=== PATIENT | male | born 1930 ===

== ENCOUNTER 2020-07-10 17:54 | Emergency (ER) | payer MEDICAID ==
[~2020-07-10] VITALS: Ht 165.1 cm; Wt 68.0 kg
[2020-07-10] MEDS ORDERED: SODIUM CHLORIDE FLUSH 10ML SYR IVF ONE (18:30)
[2020-07-10] MEDS ORDERED: SODIUM CHLORIDE 0.9% 1,000ML IVBOLUS ONE ×2 (18:30→20:00)
[2020-07-10] MEDS ORDERED: ACETAMINOPHEN 325 MG TABLET PO ONE (18:30)
[2020-07-10] MEDS ORDERED: ATOR40TA78 PO (18:39)
[2020-07-10] MEDS ORDERED: POTA20PA25 PO (18:39)
[2020-07-10] MEDS ORDERED: CHOL10003 PO (18:39)
[2020-07-10] MEDS ORDERED: CYAN100T22 PO (18:39)
[2020-07-10] MEDS ORDERED: DONE10TA14 PO (18:39)
[2020-07-10] MEDS ORDERED: FURO20TA3 PO (18:39)
[2020-07-10] MEDS ORDERED: APIX2.5T PO (18:39)
[2020-07-10] MEDS ORDERED: LISI5TAB7 PO (18:39)
[2020-07-10] MEDS ORDERED: MULT-658 PO (18:39)
[2020-07-10] MEDS ORDERED: METO50TA4 PO (18:39)
[2020-07-10] MEDS ORDERED: ACETAMINOPHEN 325 MG TABLET ONE (18:48)
[2020-07-10 18:50] LABS: EOSINOPHILS % (AUTO) 0 % (1-7)
[2020-07-10 18:51] LABS: INTERNATIONAL NORMALIZED RATIO 1.32 (0.93-1.1)
--- NOTE | 2020-07-10 18:52 | NUR ---
REPORT GIVEN TO ROSALIO
[2020-07-10 18:53] LABS: ALANINE AMINOTRANSFERASE 369 U/L (12-78); ALBUMIN 2.8 g/dL (3.4-5.0); ANION GAP 16 mmol/L (5-15); CHLORIDE 102 mmol/L (98-107); CREATININE 2.75 mg/dL (0.7-1.3)
[2020-07-10 18:58] LABS: BASOPHILS % (AUTO) 0 % (0-1); LYMPHOCYTES % (AUTO) 5 % (22-44); MEAN CORPUSCULAR HEMOGLOBIN 31.8 pg (27.5-34.5); MEAN CORPUSCULAR HGB CONC 32.7 g/dL (33.2-36.2); MEAN PLATELET VOLUME 9.2 fL (7.4-10.4); MONOCYTES % (AUTO) 4 % (2-9); NEUTROPHILS % (AUTO) 90 % (42-75); PLATELET COUNT 239 x10^3/uL (130-400); RED BLOOD COUNT 4.29 x10^6/uL (4.38-5.82); RED CELL DISTRIBUTION WIDTH 15.3 % (9.4-14.8)
[2020-07-10] MEDS ORDERED: CEFTRIAXONE PMX 1GM/50ML 50 ML ONE (18:58)
[2020-07-10 19:00] LABS: MD NO
[2020-07-10] MEDS ORDERED: CEFTRIAXONE PMX 1GM/50ML 50 ML IVPB ONE (19:00)
[2020-07-10] MEDS ORDERED: AZITHROMYCIN 500 MG in SODIUM CHLORIDE 0.9% 250 ML IVPB ONE (19:00)
--- NOTE | 2020-07-10 19:07 | NUR ---
REPORT RECIEVED FROM CARINA DEL ANGEL. RESPIRATORY IS BEDSIDE FOR ASSESSMENT.
[2020-07-10 19:10] LABS: ALKALINE PHOSPHATASE 109 U/L (45-117); BILIRUBIN,TOTAL 1.2 mg/dL (0.2-1.0); TOTAL PROTEIN 7.2 g/dL (6.4-8.2)
[2020-07-10 19:13] LABS: TROPONIN I 0.893 ng/mL (0.000-0.045)
[2020-07-10] MEDS ORDERED: PLEASE ENTER HEIGHT AND WEIGHT MC SCH (19:30)
[2020-07-10] MEDS ORDERED: ASPIRIN 81 MG TABLET CHEW PO ONE (19:30)
[2020-07-10] MEDS ORDERED: ASPIRIN 81 MG TABLET CHEW ONE (19:30)
--- NOTE | 2020-07-10 19:49 | NUR ---
PT WORK OF BREATHING INCREASING. NOTIFIED. PT TO BE INTUBATED. PT ONLY GOT 81MG ASPIRIN
[2020-07-10] MEDS ORDERED: HEPARIN 5,000 UNITS/ML, 1ML IV ONE (20:00)
[2020-07-10] MEDS ORDERED: BISACODYL 10 MG SUPP PR PRN (20:00)
[2020-07-10] MEDS ORDERED: HEPARIN 25,000 UNITS/250ML PMX 250 ML IV PRN (20:00)
[2020-07-10] MEDS ORDERED: LABETALOL 5MG/ML, 20ML IVPush PRN (20:00)
[2020-07-10] MEDS ORDERED: ACETAMINOPHEN 325 MG TABLET PO/NG PRN (20:00)
[2020-07-10] MEDS ORDERED: HEPARIN 5,000 UNITS/ML, 1ML IV PRN (20:00)
[2020-07-10] MEDS ORDERED: hydrALAzine 20 MG/ML, 1ML IVPush PRN (20:00)
[2020-07-10 20:45] LABS: C-REACTIVE PROTEIN, QUANT 10.8 mg/dL (0.02-0.49)
[2020-07-10] MEDS ORDERED: EPINEPHRINE 1 MG/ML, 30ML ONE (20:50)
[2020-07-10] MEDS ORDERED: SODIUM BICARB 8.4%, 50ML SYRINGE ONE (20:50)
[2020-07-10] MEDS ORDERED: VASOPRESSIN 20 UNIT/ML, 1ML ONE (20:50)
[2020-07-10] MEDS ORDERED: EPINEPHRINE SYRINGE 0.1 MG/ML, 10ML ONE (20:50)
[2020-07-10] MEDS ORDERED: FAMOTIDINE 20 MG/2 ML IVPush SCH (21:00)
--- NOTE | 2020-07-10 21:06 | NUR ---
TP RN: [facility] INFORMATION FOR PATIENTS JAIL AND EMERGENCY CONTACT INFO: JAIL: [facility] CORDELIA PRESLEY ALIRIO # [phone] [place] # [phone] DAUGHTERMEG: [phone]
[2020-07-10 21:25] LABS: PLATELET (DIC) 130 x10^3/uL (130-400)
[2020-07-10] MEDS ORDERED: morphine SULFATE 10 MG/ML, 1ML ONE (21:30)
--- NOTE | 2020-07-10 21:40 | NUR ---
DR CEJA AND DR BROWN SAID THEY TALKED WITH PT DAUGHTER WHO IS POA AND THAT THEY WHERE SWITCHING TO COMFORT CARE. PROVIDERS GAVE VERBAL ORDERED PT BE TAKEN OFF THE ET VENT TUBE AND EPI MEDICATION AND GIVEN MS AND VERSED.
--- NOTE | 2020-07-10 21:43 | NUR ---
PT EXTUBATED WITH MEDS STOPPED.
--- NOTE | 2020-07-10 21:43 | NUR ---
Note teddy in EDM - 07/10/20 at 2208 by EYAL PT DEEXTUBATED WITH MEDS STOPPED.
--- NOTE | 2020-07-10 21:56 | NUR ---
PT TIME OF 2154 WITH RN ROSALIO AND DEVELOPER PROGRAMMER PRESENT AT TIME.
[2020-07-10 22:00] LABS: D-DIMER > 35.20 ug/mlFEU (0.00-0.52); FIBRINOGEN 260 mg/dL (200-340); PTT 67 Seconds (25-31)
[2020-07-10] MEDS ORDERED: BISACODYL 5 MG EC TABLET PO PRN (22:00)
[2020-07-10] MEDS ORDERED: LORazepam 2 MG/ML, 1ML IVPush PRN (22:00)
[2020-07-10] MEDS ORDERED: ATROPINE OPHTH SOLN 1%, 5ML PO PRN (22:00)
[2020-07-10] MEDS ORDERED: MORPHINE SULFATE 4 MG/ML, 1ML IVPush PRN (22:00)
[2020-07-10] MEDS ORDERED: ONDANSETRON 2MG/ML, 2ML IVPush PRN (22:00)
[2020-07-10 22:03] LABS: D-DIMER (DIC) > 35.20 ug/mlFEU (0.00-0.52)
--- NOTE | 2020-07-10 23:56 | NUR ---
PT DAUGHTER AWARE OF PT , PT DAUGHTER REQUESTED CREMATION.
[2020-07-10 23:58] VITALS: BP 186/111
[2020-07-11] MEDS ORDERED: PROPOFOL 10 MG/ML, 100ML IV ONE (01:48)
[2020-07-11] MEDS ORDERED: ETOMIDATE 20 MG/10 ML ONE (01:48)
[2020-07-11] MEDS ORDERED: SUCCINYLCHOLINE 20 MG/ML, 10ML ONE (01:48)
[2020-07-11] MEDS ORDERED: EPINEPHRINE SYRINGE 0.1 MG/ML, 10ML ONE (05:51)
[2020-07-11] MEDS ORDERED: FUROSEMIDE 40 MG/4 ML IV SCH (09:00)
[2020-07-11] MEDS ORDERED: AZITHROMYCIN 500 MG in SODIUM CHLORIDE 0.9% 250 ML IV SCH (20:00)
[2020-07-11] MEDS ORDERED: CEFTRIAXONE PMX 1GM/50ML 50 ML IV SCH (20:00)
[2020-07-11] MEDS ORDERED: DEXAMETHASONE 4 MG/ML, 5ML IVPush SCH (20:00)
== END 2020-07-10 21:56 | disposition expired ==
LOC: ED 20:55 → EDIP 21:18 → UNDOADMIN 21:18 → ED 21:56
DX: U07.1 COVID-19 (principal); A41.9 Sepsis, unspecified organism; R65.20 Severe sepsis without septic shock; J96.01 Acute respiratory failure with hypoxia; I46.9 Cardiac arrest, cause unspecified; I21.4 Non-ST elevation (NSTEMI) myocardial infarction; N28.9 Disorder of kidney and ureter, unspecified; J12.9 Viral pneumonia, unspecified; E87.2 Acidosis; R94.5 Abnormal results of liver function studies
CPT/HCPCS: 31500; 36415; 36556; 36600; 71045; 80053; 82728; 82803; 83605; 83615; 83880; 84145; 84484; 85025; 85049; 85379; 85384; 85520; 85610; 85730; 86140; 87040; 92950; 93005; 96365; 96366; 96367; 99291; 99292; J0171; J0456; J0696; J7030; J7050; U0003; 94002; 94003; J2704; J0330